=== PATIENT | male | born 1950 | race Caucasian/White ===

== ENCOUNTER 2023-04-14 18:41 | Emergency (ER) | payer MEDICARE, BC, SELFPAY ==
[2023-04-14 18:46] VITALS: BP 168/98; PULSE 85; RESP 18; TEMP 36.9; O2SAT 97; BMI 32.3
--- NOTE | 2023-04-14 18:58 | ED_ITS ---
HPI - General Adult General Chief complaint: Back Injury/Pain Stated complaint: Back pain Time Seen by Provider: 04/14/23 18:58 History of Present Illness HPI narrative: pt has herniated disk, L5, S1 for years. seeing chiropractor for a couple weeks. took ibuprofen twice today. after sitting in a both at [employer], couldn't walk. pt gets shootinpains and spasm 72-year-old man presenting to the emergency department with complaint of low back pain. Initially understand it to be shooting down his right buttock posterior thigh but it seems more concentrated across the low back a to and more so on the right side. It has been bothering him for a couple of weeks. Today while had RBCs got up to move a table. He describes a waited rotation movement of that trunk and sudden flare of intense pain. Any bump or jolt really hurt driving to home and then here. He is not describing weakness. Any movement just causes intense pain. He does say that he has a history of an L4-5 disc herniation that was diagnosed on MRI. Apparently this was 15- 20 years ago. Has problems, flares of pain periodically. Apparently saw chiropractor recently. No who noted loss of bowel bladder control. Related Data Home Medications Medication Instructions Recorded Confirmed atorvastatin 10 mg tablet 10 mg PO 10/16/22 10/16/22 finasteride 5 mg tablet 5 mg PO 10/16/22 10/16/22 losartan 100 mg tablet 100 mg PO 10/16/22 10/16/22 Allergies Allergy/AdvReac Type Severity Reaction Status Date / Time No Known Drug Allergies Allergy Verified 10/16/22 10:25 Review of Systems Status of ROS: Reports: 6 or more systems reviewed and unremarkable except as noted in History and below [facility] Social History Smoking Status: Former smoker How often do you have a drink containing alcohol: monthly or less AUDIT-C Alcohol total score: 1 Non-prescribed substance use: denies use Exam Narrative: Exam Narrative: Pleasant. Tanned Legs are well muscled. Clearly uncomfortable with even minor movements. I think trying to control his expressions of pain. Lower extremities are without edema. Breathing easily other than when wincing in apparent pain. Palpation of the back elicits primary area of pain though not very reproducible in the right SI joint. He gestures generally to the region of the low back between SI joints. No piriformis pain. Straight leg raise actually is negative but does contribute to pain in the low back. Const: Vital Signs, click to edit/add: Vital Signs - 24 hr 04/14/23 18:46 Temperature 98.4 F Pulse Rate [Pulse Oximeter] 85 Respiratory Rate 18 Blood Pressure [Le ft Upper Arm] 168/98 H Pulse Oximetry 97 Oxygen Delivery Me thod Room Air Documenting provider has reviewed patient's vital signs: yes Course Vital Signs Vital signs: Initial Vital Signs Temperature 98.4 F 04/14/23 18:46 Temperature Source Temporal Artery Scan 04/14/23 18:46 Pulse Rate 85 04/14/23 18:46 Respiratory Rate 18 04/14/23 18:46 Blood Pressure 168/98 H 04/14/23 18:46 Blood Pressure Mean 121 H 04/14/23 18:46 Blood Pressure Position Sitting 04/14/23 18:46 Pulse Oximetry 97 04/14/23 18:46 Oxygen Delivery Method Room Air 04/14/23 18:46 Vital Signs Temperature 98.4 F 04/14/23 18:46 Pulse Rate 85 04/14/23 18:46 Respiratory Rate 18 04/14/23 18:46 Blood Pressure 168/98 H 04/14/23 18:46 Pulse Oximetry 97 04/14/23 18:46 Oxygen Delivery Method Room Air 04/14/23 18:46 Temperature 98.4 F 04/14/23 18:46 Pulse Rate 85 04/14/23 18:46 Respiratory Rate 18 04/14/23 18:46 Blood Pressure 168/98 H 04/14/23 18:46 Pulse Oximetry 97 04/14/23 18:46 Oxygen Delivery Method Room Air 04/14/23 18:46 Medical Decision Making MDM Narrative Medical decision making narrative: To have less radicular symptoms that would make me think of a disc impingement. I do not have access to these MRI reports at this time. Rotational truncal motions and extension causing pain I think does correlate with sacroiliac joint issues. I think degree of pain is having though would benefit from injectable Dilaudid for more immediate relief. There is some question of potential nausea with opiates, particularly oral, historically. Without new trauma otherwise I do not think further imaging is warranted at this time. Differential still though does include disc herniation with impingement, piriformis syndrome, sciatica. Given 1 mg IM Dilaudid. He is able to transition on reassessment. Feels much better. Placing Lidoderm patch as well. See patient discharge plan Discharge Plan Discharge Clinical Impression: Low back pain, Sacroiliac joint pain Patient Disposition: Home w/ Parent or Adult Condition: Improved Additional Instructions: If you think this lidocaine patch works, you might try using the over counter op tion. See handout on sacroiliac joint pain as well as stretches/exercises for the low back. [place], Zofran, prednisone from [facility]. If [place] is clearly causing nausea, might try pretreating by 45 minutes or so with tablet of diphenhydramine. Take the prednisone as 60 mg daily for 3 days 40 mg daily for 3 days 20 mg daily for 3 days Can take up to 1000 mg of acetaminophen or up to 800 mg of ibuprofen per dose. Remember that each tablet of [place] contains 325 mg of acetaminophen. Alternative to the ibuprofen might be up to 500 mg of naproxen 2 times daily. Prescriptions: No Action finasteride 5 mg tablet 5 mg PO atorvastatin 10 mg tablet 10 mg PO losartan 100 mg tablet 100 mg PO Patient Comments: TAKE 1 TABLET BY MOUTH EVERY DAY Follow Up/Referrals: Brendan Calvin MD [Referring] - Stand Alone Forms: [facility] Info Instructions
[2023-04-14] MEDS: HYDROmorphone 0.5 mg/0.5 ml inj 1 MG IM (19:42)
== END 2023-04-14 21:20 | disposition home or self-care (01) ==
PROVIDERS: Emergency Provider Family Medicine; PCP Family Medicine
DX: M54.50 Low back pain, unspecified (principal); M53.3 Sacrococcygeal disorders, not elsewhere classified
CPT/HCPCS: 96372; 99284; J1170

== ENCOUNTER 2023-09-21 13:00 | Outpatient (RCR) | payer MEDICARE, BC, SELFPAY | END 2023-09-21 14:01 | disposition home or self-care (01) | PROVIDERS: PCP Family Medicine; Visit Provider Family Medicine | DX: M54.12 Radiculopathy, cervical region (principal); M25.552 Pain in left hip; M16.0 Bilateral primary osteoarthritis of hip; M54.2 Cervicalgia; Z74.09 Other reduced mobility; R26.9 Unspecified abnormalities of gait and mobility; R53.1 Weakness; Z51.89 Encounter for other specified aftercare | CPT/HCPCS: 97110; 97140; 97161 ==

== ENCOUNTER 2024-09-10 06:37 | Outpatient (CLI) | payer MEDICARE, BC, SELFPAY | END 2024-09-10 06:38 | disposition home or self-care (01) | LOC: INJ CL 06:39 | PROVIDERS: PCP Family Medicine; Visit Provider Family Medicine | DX: M16.12 Unilateral primary osteoarthritis, left hip (principal); M25.552 Pain in left hip | CPT/HCPCS: 20610; 77002; J0702; Q9966 ==

== ENCOUNTER 2025-03-24 08:21 | Day surgery (SDC) | payer MEDICARE, BC, SELFPAY ==
[2025-03-24] VITALS (7 sets, daily range): BP systolic 132–150; BP diastolic 70–94; PULSE 80–90; RESP 14–16; TEMP 36.9–37.1; O2SAT 95–97; BMI 32.5
[2025-03-24] MEDS: BUPIVACAINE 0.5% 30 ML INJECTION (08:44)
[2025-03-24] MEDS: LIDOCAINE 1%-EPI 1:100,000 20 ML INFILTRATI (08:44)
[2025-03-24] MEDS: ETHYL CHLORIDE 1 APPLICATION 1 APPLIC TOPICAL (08:44)
--- NOTE | 2025-03-24 08:44 | SUR.PREOP ---
SAME DAY SURGERY LOCAL INJECTION SITE VERIFICATION WAS PERFORMED BY SURGEON/PA AND PATIENT PRIOR TO LOCAL ANESTHETIC BEING INJECTED TO OPERATIVE SITE.
[2025-03-24] MEDS: LIDOCAINE 1%-EPI 1:100,000 20 ML INJECTION (09:30)
--- NOTE | 2025-03-24 09:32 | P.ORPRC_ITS ---
Procedure Note Date of procedure: 03/24/25 Procedure: PREOPERATIVE DIAGNOSIS: 1. Right carpal tunnel syndrome POSTOPERATIVE DIAGNOSIS: 1. Right carpal tunnel syndrome PROCEDURE: 1. Right open carpal tunnel release SURGEON: Osiel Junior MD. BRAKE PRESS OPERATOR: POONAM Chisholm ANESTHESIA: Local anesthetic (50:50 mixture of 1% lidocaine with epi and 0.5% marcaine plain) - 10ml total IMPLANTS: None EBL: 2 mL TOURNIQUET: None COMPLICATIONS: None evident INDICATIONS: The patient is a pleasant 74-year-old male who has experienced right hand numbess/tingling affecting the radial 3.5 digits for multiple months. It has progressively gotten worse. Nonoperative management has been tried and failed, and therefore surgery was recommended. DESCRIPTION OF PROCEDURE: Following a thorough discussion of risks, benefits, and alternatives consent was obtained and the operative extremity was marked. The patient was brought to the operating room and placed supine on the operating table. Local anesthesia induction was undertaken in preop holding. No antibiotics were administered as this was planned to be a local case only. Proper time-out was performed identifying proper patient, site, and procedure. The operative extremity was prepped and draped in the appropriate sterile fashion using ChloraPrep. An incision was made in line with the radial border of the ring finger beginning 1 cm distal to the distal wrist crease and progressing for another 2.5cm distal. Caution was taken to stay proximal to Roche's cardinal line. Sharp incision through the skin, subcutaneous tissue, and palmar fascia was performed. The thenar musculature was bluntly elevated off the transverse carpal ligament. The ligament was directly visualized, and divided sharply with a 15 blade. This was released from its most proximal to the most distal extent. Metzenbaum scissor was also utilized to release the fascia extension proximally. We confirmed complete release of the transverse carpal ligament. Closure was performed with 4-O nylon in interrupted fashion. Soft dressings were applied, and the patient was transferred to the recovery room in stable condition. PLAN: 1. Encourage elevation of the operative extremity. 2. Range of motion of the fingers and hand/wrist as tolerated. 3. Ibuprofen/acetaminophen as needed for pain control. 4. Follow up with PA visit or nurse visit in 12-16 days for wound check and suture removal.
[2025-03-24] MEDS: BACITRACIN OINTMENT BULK TUBE 1 APPLIC TOPICAL (09:34)
== END 2025-03-24 09:54 | disposition home or self-care (01) ==
LOC: OR 08:22
PROVIDERS: PCP Family Medicine; Visit Provider Orthopaedic Surgery Sports Medicine
PROC: (CPT 64721; principal; 2025-03-24 09:45)
DX: G56.01 Carpal tunnel syndrome, right upper limb (principal)
CPT/HCPCS: 64721; J0665